=== PATIENT | female | born 1950 | race Caucasian/White ===

== ENCOUNTER 2021-02-15 11:48 | Emergency (ER) | payer MEDICARE ==
[2021-02-15] MEDS ORDERED: Bacitracin 1 PK ONE (12:34)
[2021-02-15] MEDS ORDERED: Boostrix 0.5 ML (Tdap) VIAL ONE (12:35)
[2021-02-15] MEDS ORDERED: Lidocaine 1% 20 ML MDV ONE (12:35)
[2021-02-15] MEDS ORDERED: Lidocaine 1% w/Epinephrine 1:100K 20 ML VIAL ONE (12:50)
== END 2021-02-15 14:00 | disposition home or self-care (01) ==
LOC: MADERS 11:48
DX: S01.81XA Laceration without foreign body of other part of head, initial encounter (principal); G20 Parkinson's disease; Z79.899 Other long term (current) drug therapy; W18.30XA Fall on same level, unspecified, initial encounter
CPT/HCPCS: 12013; 70450; 70486; 72125; 90471; 90715